=== PATIENT | female | born 1980 | race Caucasian/White ===

== ENCOUNTER 2017-08-20 17:28 | Emergency (ER) | payer MEDICAID ==
[~2017-08-20] VITALS: Ht 154.9 cm; Wt 104.5 kg
[2017-08-20 18:36] VITALS: BP 122/66
== END 2017-08-21 00:30 | disposition left against medical advice (07) ==
LOC: ER 17:56
DX: Z53.21 Procedure and treatment not carried out due to patient leaving prior to being seen by health care provider (principal)